=== PATIENT | male | born 1995 | race Two or more races ===

== ENCOUNTER 2022-05-01 02:23 | Emergency (ER) | payer BC ==
[~2022-05-01] VITALS: Ht 180.3 cm; Wt 60.0 kg
[2022-05-01] MEDS ORDERED: DONNATAL 5ml ORAL Elix (BELLADONNA ALK-PHENOBARB) PO ONE (03:15)
[2022-05-01] MEDS ORDERED: ALUM & MAG HYDROX-SIMETH LIQ(MAALOX) 30 ML PO ONE (03:15)
[2022-05-01] MEDS ORDERED: LIDOCAINE VISCOUS 2% 15ML UD PO ONE (03:15)
[2022-05-01 03:18] LABS: Basophils # (auto) 0.1 10 ^3/uL (0-0.2); Basophils % (auto) 0.9 % (0.0-2.0); Eosinophils # (auto) 0.1 10 ^3/uL (0-0.8); Eosinophils % (auto) 1.4 % (0.0-7.0); Hematocrit 43.9 % (41.0-53.0); Hemoglobin 14.8 g/dL (13.5-17.5); Lymphocytes # (auto) 1.9 10 ^3/uL (0.4-5.4); Lymphocytes % (auto) 32.4 % (10.0-50.0); Mean Corpuscular Hemoglobin 28.1 pg (28.0-32.0); Mean Corpuscular Hgb Conc. 33.8 g/dL (32.0-36.0); Mean Corpuscular Volume 83.1 fL (80.0-100.0); Monocytes # (auto) 0.4 10 ^3/uL (0-1.3); Monocytes % (auto) 6.5 % (0.0-12.0); Neutrophils # (auto) 3.5 10 ^3/uL (1.6-8.6); Neutrophils % (auto) 58.8 % (37.0-80.0); Nucleated Red Blood Cells % 0.1 %; Red Blood Cells 5.28 10^6/uL (4.5-5.90); Red Cell Distribution Width 14.5 % (11.8-14.3); White Blood Cell 5.9 10^3/uL (4.4-10.8)
[2022-05-01 03:39] LABS: BUN/Creatinine Ratio 12.9; Potassium 4.6 mmol/L (3.5-5.1)
[2022-05-01 03:42] LABS: Bilirubin, Total 0.5 mg/dL (0.2-1.0); Total Protein 7.2 g/dL (6.4-8.2)
[2022-05-01 03:57] LABS: Urine Bacteria FEW /hpf (None Seen); Urine Blood Negative /uL (Negative); Urine Hyaline Cast FEW /lpf (0 - 2); Urine Mucus FEW (None Seen); Urine Specific Gravity 1.026 (1.001-1.035); Urine WBC 1 /hpf (0 - 3)
[2022-05-01 06:00] VITALS: BP 120/61
[2022-05-01] MEDS ORDERED: LORazepam 0.5 MG TAB PO PRN (06:30)
[2022-05-01] MEDS ORDERED: ONDANSETRON HCL 4 MG/2 ML VIAL IV PRN (06:30)
[2022-05-01] MEDS ORDERED: metroNIDAZOLE 500MG/100ML 100 ML IV SCH (06:30)
[2022-05-01] MEDS ORDERED: ACETAMINOPHEN 325 MG TAB PO PRN (06:30)
[2022-05-01] MEDS ORDERED: DOCUSATE SOD 100 MG CAP PO PRN (06:30)
[2022-05-01] MEDS ORDERED: HYDROcodone-ACET 5/325MG TAB PO PRN (06:30)
[2022-05-01] MEDS ORDERED: MORPHINE SULFATE INJ 2 MG/ml SYRG IV PRN (06:30)
[2022-05-01] MEDS ORDERED: SODIUM CHLORIDE 0.9% 1,000 ML IV SCH (06:30)
== END 2022-05-01 06:25 | disposition left against medical advice (07) ==
LOC: ER 02:23
DX: K56.609 Unspecified intestinal obstruction, unspecified as to partial versus complete obstruction (principal); F17.210 Nicotine dependence, cigarettes, uncomplicated; F12.10 Cannabis abuse, uncomplicated; Z53.29 Procedure and treatment not carried out because of patient's decision for other reasons
CPT/HCPCS: 36415; 74176; 80053; 81001; 85025

== ENCOUNTER 2024-01-13 18:53 | Emergency (ER) | payer BC, MEDICAID ==
[~2024-01-13] VITALS: Ht 180.3 cm; Wt 62.8 kg
[2024-01-13 19:03] VITALS: BP 128/84; PULSE 96; RESP 18; O2SAT 96
[2024-01-13] MEDS ORDERED: IBUP1TAB5 PO (20:12)
[2024-01-13] MEDS ORDERED: BENZLOZ2 MT (20:12)
[2024-01-13] MEDS ORDERED: PRED20TA2 PO (20:12)
[2024-01-13] MEDS ORDERED: AMOX500C2 PO (20:12)
[2024-01-13] MEDS: DexAMETHasone SOD PHOS 10MG/1ML VIAL INJ IM ONE (20:54)
[2024-01-13] MEDS: IBUPROFEN 600 MG TAB PO ONE (20:55)
[2024-01-13] MEDS: cefTRIAXone SOD 1,000 MG VL IM ONE (20:55)
[2024-01-13] MEDS: LIDOCAINE VISCOUS 2% 15ML UD MT ONE (20:55)
== END 2024-01-13 20:53 | disposition home or self-care (01) ==
LOC: ER 18:53
DX: J03.90 Acute tonsillitis, unspecified (principal); F17.210 Nicotine dependence, cigarettes, uncomplicated; F12.10 Cannabis abuse, uncomplicated
CPT/HCPCS: 96372; 99284; J0696; J1100